=== PATIENT | female | born 1960 ===

== ENCOUNTER 2024-01-10 06:30 | Day surgery (SDC) | payer OTHER ==
[2024-01-10] MEDS ORDERED: DIPHENHYDRAMINE HCL 50 MG/ML VIAL 1ML IV STA (08:45)
[2024-01-10] MEDS ORDERED: MIDAZOLAM HCL 2 MG/2 ML VIAL IV STA (08:45)
[2024-01-10] MEDS ORDERED: FentaNYL CITRATE/PF 50MCG/ML 2ML VIAL IJ STA (08:46)
== END 2024-01-10 10:40 | disposition home or self-care (01) ==
LOC: AMB-ENDOS 06:30 → CIR.AMB 13:00 → AMB-ENDOS 13:00
PROVIDERS: ATTEND Internal Medicine Gastroenterology
DX: D12.4 Benign neoplasm of descending colon (principal); K63.5 Polyp of colon; Z12.11 Encounter for screening for malignant neoplasm of colon